=== PATIENT | male | born 1935 | race Caucasian/White ===

== ENCOUNTER 2023-11-14 20:11 | Inpatient (IN) | payer OTHER, SELFPAY ==
[2023-11-14] VITALS (9 sets, daily range): BP systolic 158–219; BP diastolic 81–98; BMI 27.5; BMI 26.5
[2023-11-14 17:01] LABS: % Basophils 0.5 % (0-2); % Eosinophils 0.4 % (0-6); % Immature Granulocytes 0.3 % (0-0.5); % Lymphocytes 15.7 % (20.5-51.1); % Monocytes 5.7 % (1.7-9.3); % Neutrophils 77.4 % (42.2-75.2); Absolute Basophils 0.1 10^3/uL (0-0.2); Absolute Eosinophils 0.1 10^3/uL (0-0.7); Absolute Lymphocytes 1.8 10^3/uL (1.2-3.4); Absolute Monocytes 0.7 10^3/uL (0.1-0.6); Absolute Neutrophils 8.9 10^3/uL (1.4-6.5); Hematocrit 38.9 % (39.0-52.0); Hemoglobin 12.4 g/dL (13.0-18.0); Mean Corp Hgb Conc. 31.9 g/dL (33.0-37.0); Mean Corpuscular Hgb 26.2 pg (27.0-31.0); Mean Corpuscular Volume 82.1 fL (80.0-94.0); Mean Platelet Volume 8.6 fL (7.4-10.4); Nucleated Red Blood Cells % 0 % (-); Platelet Count 308 10^3/uL (130-400); Red Blood Cell Count 4.74 10^6/uL (4.70-6.10); Red Cell Dist. Width 16.7 % (11.5-14.5); White Blood Cell Count 11.5 10^3/uL (4.8-10.8)
[2023-11-14 17:15] LABS: ALT (SGPT) 24 U/L (0-50); AST (SGOT) 31 U/L (17-59); Alkaline Phosphatase 122 U/L (38-126); Blood Urea Nitrogen 19 mg/dl (9-20); Calcium 9.2 mg/dl (8.4-10.2); Carbon Dioxide 24 mmol/L (22-30); Chloride 102 mmol/L (98-107); Estimated Creatinine Clearance 49 ml/min; Glucose 100 mg/dl (70-99); Potassium 4.3 mmol/L (3.5-5.1); Sodium 134 mmol/L (135-145); Total Bilirubin 0.7 mg/dl (0.2-1.3); Total Protein 6.8 g/dl (6.3-8.2); eGFR > 60.00
--- NOTE | 2023-11-14 17:15 | ED.GENMED ---
History of Present Illness
General
Chief Complaint: Dizziness
Source: patient
Exam Limitations: none
Time Seen by Provider: 11/14/23 16:55
Nursing documentation reviewed up to this point in time: agreed with
Travel History
Have you had any contact with someone who has COVID-19?: No
Do you have any symptoms of coronavirus? Fever > 100 degrees, chills, cough, shortness of breath, sore throat, loss of taste or smell, muscle aches, or headache?: No
History of Present Illness
History of Present Illness:
Patient to ED wt complaint of chest tightness, weakness, dizziness. States he had diarrhea yesterday. Took pepto and has had no further episodes today. Did not eat or drink yesterday or today. States he woke today extremely weak and dizzy.
Reports chest tightness. Brought to ED via EMS for eval. Denies fever/chills
Past History
Past History
ED Past Medical History: Arrthythmia (afib), COPD, GERD, HTN, Hypercholesterolemia and Other (PD,PNA)
ED Past Surgical History: None
Social History
Tobacco: Former smoker
Alcohol: Former (Alcoholic clean for many years)
Drug: None
Personal:
Living: with family
Employment: Employed
Family History
Family History: Other (Noncontributory)
Review of Systems
Review of Systems
Allergies reviewed?: Yes
All Other Systems: ROS reviewed and negative except as documented in HPI and ROS
Constitutional: Reports fatigue
EENT: Reports no symptoms
Respiratory: Reports no symptoms
Cardiac: Reports chest pain (Chest tightness this AM)
ABD/GI: Reports diarrhea
: Reports no symptoms
Musculoskeletal: Reports no symptoms
Neurological: Reports dizzy and weakness
Psychiatric: Reports no symptoms
Phy Exam
General Physical Exam
General Presentation: well appearing and no apparent distress
General age: appears stated age
General Skin: warm and dry
General Habitus: normal
Cardiovascular Exam
Cardiovascular Exam: regular rate/rhythm and no edema
Pulmonary Exam
Pulmonary Exam: lungs clear, no respiratory distress and chest non tender
Gastrointestinal Exam
Gastrointestinal Exam: normal bowel sounds, non tender and soft
Neurological Exam
Neurological Exam: alert, oriented x3, CN II-XII intact and no motor deficits
Musculoskeletal Exam
Musculoskeletal Exam: full ROM and neuro vasc intact
Skin Exam
Skin Exam: normal color, warm/dry and no rash
Psychiatric Exam
Psychiatric Exam: normal mood/affect
Course
Orders/Labs/Results
Orders:
Orders
11/14/23 Dinner
Regular
At Your Request: Full Participation
Does patient need a safe tray?: No
11/14/23 16:44
Electrocardiogram (*1) Urgent
Reason for Study: Shortness of Breath
EKG- Treatment ONCE
11/14/23 16:52
Complete Blood Count/With Diff Urgent
Comprehensive Metabolic Panel Urgent
11/14/23 17:14
CR Chest - 2 Views Urgent
Comment:
Reason For Exam: chest tightness
11/14/23 17:16
0.9% Sodium Chloride 1000 ml [Nss] 1,000 ml IV BOLUS
11/14/23 17:30
Troponin I Urgent
11/14/23 18:30
Urinalysis Reflex To Culture Urgent
Date Specimen was Collected: 11/14/23
Time Specimen was Collected: 17:34
11/14/23 19:30
Admit/Transfer Patient As Directed
Co-Sign Provider:
Level of Care: Inpatient admission
Assign to:: Telemetry
Physician / Group: maria alejandra
Diagnosis: chest tightness
Reason for Telemetry: Arrhythmia
Date to Stop Telemetry: 11/17/23
Time to Stop Telemetry: 11:00
Reason for Hospitalization: chest tightness
Expected length of stay greater than two midnights?: Yes
ELOS- Estimated Length of Stay in days: 2
I certify the patient meets the requirements for IP care: Yes
Code Status As Directed
Resuscitation Status: Full Code
11/14/23 21:00
Albuterol [ProAIR HFA INHALER] 2 puff INH R Q4 PRN
FLUTICASONE PROPIONATE 220 mcg [Flovent 220Mcg] 2 puff INH R BID
Heparin 5,000 units SC Q12
Ipratropium Nebs [Atrovent Nebules] 0.5 mg INH R TID
Olodaterol HCl [Striverdi Respimat] 2 puff INH R BID
11/14/23 21:00
Activity As Directed
Activity Level: As Tolerated
Vital Signs As Directed
Frequency: Per unit guidelines
DX Deep Vein Thrombosis Video Routine
11/14/23 21:42
Troponin I Q6H
11/14/23 22:00
Gabapentin [Neurontin] 900 mg PO HS
Lisinopril [Zestril] 20 mg PO HS
Melatonin 5 mg PO HS
11/15/23 03:00
Troponin I Q6H
11/15/23 06:00
Complete Blood Count/With Diff IN AM
Comprehensive Metabolic Panel IN AM
11/15/23 08:00
Clopidogrel Bisulfate [Plavix] 75 mg PO DAILY
Cyanocobalamin [Vitamin B-12] 1,000 mcg PO DAILY
Ezetimibe [Zetia] 10 mg PO DAILY
Ferrous Sulfate [Feosol] 325 mg PO DAILY
Pantoprazole [Protonix] 40 mg PO DAILY
coenzyme Q10 200 mg PO DAILY
11/15/23 09:00
Troponin I Q6H
11/17/23 11:00
DC Protocol for Telemetry ONCE
Abnormal Lab Results
11/14/23 11/14/23 11/14/23
16:52 17:30 18:30
WBC 11.5 H 10^3/uL
(4.8-10.8)
Hgb 12.4 L g/dL
(13.0-18.0)
Hct 38.9 L %
(39.0-52.0)
MCH 26.2 L pg
(27.0-31.0)
MCHC 31.9 L g/dL
(33.0-37.0)
RDW 16.7 H %
(11.5-14.5)
Absolute Neuts (auto) 8.9 H 10^3/uL
(1.4-6.5)
Absolute Monos (auto) 0.7 H 10^3/uL
(0.1-0.6)
Neutrophils % 77.4 H %
(42.2-75.2)
Lymphocytes % 15.7 L %
(20.5-51.1)
Sodium 134 L mmol/L
(135-145)
Glucose 100 H mg/dl
(70-99)
Troponin I 0.042 H* ng/ml
Urine Ketones 2+ A
(Negative)
Urine Glucose Trace A
(Negative)
11/14/23 16:52
11/14/23 16:52
Vital Signs
Initial and Last Documented VS:
Initial Vital Signs
Temp
97.6 F
11/14/23 16:41
Last Documented Vital Signs
Temp Pulse Resp BP Pulse Ox
97.6 F 76 13 201/95 97
11/14/23 16:41 11/14/23 21:55 11/14/23 20:30 11/14/23 21:55 11/14/23 20:30
*Radiology
Radiology exam reviewed: radiology read reviewed
*Pulse Oximetry
Patient hypoxic: no
*Critical Care Note
Total Time (30-74mins, 75-104mins- exclusive of procedures): Not Applicable
Update Note
Update Note:
Patient to ED wtih complaint of extreme weakness, dizziness. Symptoms started this AM. Reports chest tightness this AM, no pain. Labs reviewed, case discussed with dr. blanco. troponin elevation noted. Will continue to trend. Recommend
admission to hospitalist service for new sudden onset weakness and dizziness.
ED Attending Note
-
Portions of this chart may have been created with voice recognition software.� Occasional wrong word or��sound alike� substitutions may have occurred due to the inherent limitations of voice recognition software.
Discharge Plan
Departure
Patient Disposition: Admit
Date of Disposition: 11/14/23
Time of Disposition: 19:07
Presentation/result/management discussed w/ accepting MD/DO: Hospitalist
Patient with high blood pressure during this ER visit?: No
Condition: Fair
Covid-19: Not Applicable
Discharge Problem:
Weakness, Dizziness
Interventions
Interventions:
*Risk Screen - Suicide Last Done: 11/14/23 16:48
*General Assessment Last Done: 11/14/23 16:48
*Neglect/Abuse Screening Last Done: 11/14/23 16:48
ED- Fall Risk Assessment Last Done: 11/14/23 20:38
*ED COVID-19 Vaccine History Last Done: 11/14/23 16:48
*Nursing Disposition Last Done: 11/14/23 20:38
ED- Neurological Assessment Last Done: 11/14/23 16:57
ED- Cardiac Assessment Last Done: 11/14/23 16:57
Discharge Date and Time
Discharge Date/Time: 11/14/23 20:39
[2023-11-14] MEDS: NSS 1000 IV (17:32)
[2023-11-14 18:16] LABS: Troponin I 0.042 ng/ml
[2023-11-14 18:50] LABS: Urine Albumin Negative (Neg - Trace); Urine Bilirubin Negative (Negative); Urine Character Clear (Clear); Urine Color Yellow; Urine Glucose Trace (Negative); Urine Ketone 2+ (Negative); Urine Leukocyte Negative (Negative); Urine Nitrite Negative (Negative); Urine Occult Blood Negative (Negative); Urine Urobilinogen Negative (Neg - 1+); Urine pH 6.5 (5.0-9.0)
--- NOTE | 2023-11-14 19:33 | HPS.HSE ---
Family Physician
-
Family Physician: Tarik Rush
Chief Complaint
-
chest pain
History of Present Illness
88-year-old male past medical history of atrial fibrillation status post ablation on Xarelto, coronary artery disease, COPD, hypertension, duodenal ulcer, GERD, hypercholesteremia, Parkinson disease, restless leg syndrome, spinal stenosis,
presenting with chest tightness, weakness and dizziness. Patient had diarrhea all day yesterday after one of his family members had similar symptoms a day prior. Diarrhea had improved today after taking Pepto-Bismol. He did not eat anything
yesterday. This morning he woke up and he was extremely weak and dizzy and had chest tightness across his chest that did not radiate anywhere. He last had symptoms like this 3 years ago when he had atrial fibrillation prior to ablation. Denies
shortness of breath, vomiting or fevers or chills or cough.
Chest pain has since improved since he has been been in the hospital.
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 Valero in [place]. He states that he has a history of coronary artery disease and a prior stress test and a stent was considered but never placed.
He states that he has been under a lot of stress recently taking care of his and his Parkinson symptoms have been worse.
He is a former smoker and no longer drinks alcohol.
No family history of heart disease.
Medical History
Past Medical History
Past Medical History: Reports Other ( atrial fibrillation status post ablation on Xarelto, coronary artery disease, COPD, hypertension, duodenal ulcer, GERD, hypercholesteremia, Parkinson disease, restless leg syndrome, spinal stenosis)
Past Surgical History: Reports None
Social History
Tobacco: Former Smoker
Alcohol: Former
Drug: None
Family History
Family History: Not pertinent
Allergies / Home Medications
Allergies reflects when Allergies were last updated in [facility].
Home Medications with original date entered in [facility]
Allergy/Medication List:
Allergies
Allergy/AdvReac Type Severity Reaction Status Date / Time
No Known Allergies Allergy Verified 12/10/22 11:56
Home Medications
coenzyme Q10 200 mg capsule 200 mg PO DAILY 07/05/16
lisinopril 20 mg tablet 20 mg PO HS 07/05/16
pantoprazole 40 mg tablet,delayed release 40 mg PO DAILY 07/05/16
furosemide 20 mg tablet 20 mg PO DAILY #30 tabs 07/07/16
albuterol sulfate 90 mcg/actuation aerosol inhaler 2 inh inhalation R Q4 PRN sob/wheezing 11/14/23
clopidogrel 75 mg tablet 75 mg PO DAILY 11/14/23
cyanocobalamin (vitamin B-12) 1,000 mcg tablet (Vitamin B-12) 1,000 mcg PO DAILY 11/14/23
ezetimibe 10 mg tablet 10 mg PO DAILY 11/14/23
ferrous sulfate 325 mg (65 mg iron) tablet 325 mg PO DAILY 11/14/23
gabapentin 300 mg capsule 900 mg PO HS 11/14/23
ipratropium bromide 17 mcg/actuation HFA aerosol inhaler (Atrovent HFA) 2 puff inhalation R TID 11/14/23
melatonin 5 mg tablet 5 mg PO HS 11/14/23
mometasone 220 mcg/actuation(30 doses) breath activated powder inhaler (Asmanex Twisthaler) 2 inh inhalation R BID 11/14/23
olodaterol 2.5 mcg/actuation mist for inhalation (Striverdi Respimat) 1 inh inhalation R BID 11/14/23
topiramate 1 tab PO DAILY 11/14/23
Review of Systems
-
History Source: Patient
A 12 point ROS was completed and negative except as noted: Yes
Constitutional: Reports No Symptoms
EENT: Reports No Symptoms
Respiratory: Reports No Symptoms
Cardiac: Reports Chest Pain
Abdomen/GI: Reports No Symptoms
: Reports No Symptoms
Musculoskeletal: Reports No Symptoms
Skin: Reports No Symptoms
Neurological: Reports No Symptoms
Endocrine: Reports No Symptoms
Hematologic/Lymphatic: Reports No Symptoms
Psych: Reports No Symptoms
Physical Exam
Vital Signs
Vital Signs
Temp Pulse Resp BP Pulse Ox
97.6 F 88 19 185/97 96
11/14/23 16:41 11/14/23 19:00 11/14/23 19:00 11/14/23 18:00 11/14/23 19:00
Physical Exam
General: Well Developed, Well Nourished and No Apparent Distress
HEENT: NormoCephalic, Moist mucous membranes and Atraumatic
Respiratory: Clear
Cardiac: S1/S2 and Regular Rhythm; No Murmur or Rub
GI: Soft, Non Tender, Non Distended and Normal Bowel Sounds; No Organomegaly
Rectal: Deferred by Provider
Musculoskeletal: No Clubbing, No Cyanosis and No Edema
Skin: No Rash
Neuro: Nonfocal/grossly intact
Laboratory Results
-
11/14/23 16:52
11/14/23 16:52
Laboratory Results
Total Bilirubin 0.7 mg/dl (0.2-1.3) 11/14/23 16:52
AST 31 U/L (17-59) 11/14/23 16:52
ALT 24 U/L (0-50) 11/14/23 16:52
Alkaline Phosphatase 122 U/L (38-126) 11/14/23 16:52
Troponin I 0.042 ng/ml H* 11/14/23 17:30
Data Reviewed
-
Lab Data: Labs Reviewed by me
Old Records: Reviewed
Impression/Plan
-
IMPRESSION:
PLAN:
# Chest tightness, rule out ACS
# History of coronary artery disease
-EKG shows sinus rhythm with first-degree AV block, left anterior fascicular block,
-Troponin of 0.042, continue to trend
-Continue aspirin and Plavix
-Cardiology consulted
# Dizziness/weakness likely due to volume losses from gastroenteritis/Parkinson's
-IV fluids given
-Hold Lasix
-Gastroenteritis has resolved
Paroxysmal atrial fibrillation status post ablation
Lower extreme edema
-Hold Lasix
COPD
-Continue inhalers
Essential hypertension
-Continue lisinopril, terazosin
Duodenal ulcer/GERD
-Continue Protonix
Hypercholesterolemia
-Continue Zetia
Parkinson's disease
-Continue Sinemet but patient does not remember dosage
Restless leg syndrome
-Continue gabapentin
Spinal stenosis
Gout
-Continue colchicine
Full code
DVT prophylaxis�heparin
Regular diet
[2023-11-14] MEDS: MELATONIN 5 MG PO (21:54)
[2023-11-14] MEDS: NEURONTIN 900 MG PO (21:54)
[2023-11-14] MEDS: HEPARIN 5000 UNITS SC (21:54)
[2023-11-14] MEDS: ZESTRIL 20 MG PO (21:55)
[2023-11-14 22:27] LABS: COVID-19 Antigen Negative (Negative)
[2023-11-14] MEDS: ATROVENT NEBULES INH (23:28)
[2023-11-14] MEDS: STRIVERDI RESPIMAT INH (23:29)
[2023-11-14] MEDS: FLOVENT 220MCG INH (23:29)
[2023-11-15] VITALS (11 sets, daily range): BP systolic 118–176; BP diastolic 69–90; PULSE 71–73; O2SAT 99
--- NOTE | 2023-11-15 00:28 | PTCARENOTE ---
Pt admitted to IVU at approximately 2100. Pt belongings with pt. Pt oriented to unit and room. HR SR 70s-90s. Pt states cough appeared 3-4 days ago accompanied by runny nose, ROSALES, and 'diarrhea with formed stools'. Flu and COVID neg. Pt's BP elevated
190s/90s-200s/90s. [facility] [employer] Marleen Henriquez PRN 5mg hydralazine ordered. Pt denies any chest tightness or SOB at this time. Informed to notify RN if any changes, call faye within reach.
[2023-11-15 03:58] LABS: % Eosinophils 2.5 % (0-6); % Immature Granulocytes 0.3 % (0-0.5); % Monocytes 8.8 % (1.7-9.3); % Neutrophils 54.4 % (42.2-75.2); Absolute Basophils 0.1 10^3/uL (0-0.2); Absolute Eosinophils 0.2 10^3/uL (0-0.7); Absolute Lymphocytes 2.4 10^3/uL (1.2-3.4); Absolute Monocytes 0.6 10^3/uL (0.1-0.6); Absolute Neutrophils 3.9 10^3/uL (1.4-6.5); Hematocrit 36.4 % (39.0-52.0); Hemoglobin 11.7 g/dL (13.0-18.0); Mean Corp Hgb Conc. 32.1 g/dL (33.0-37.0); Mean Corpuscular Hgb 26.2 pg (27.0-31.0); Mean Corpuscular Volume 81.4 fL (80.0-94.0); Mean Platelet Volume 8.8 fL (7.4-10.4); Nucleated Red Blood Cells % 0 % (-); Platelet Count 302 10^3/uL (130-400); Red Blood Cell Count 4.47 10^6/uL (4.70-6.10); Red Cell Dist. Width 16.9 % (11.5-14.5); White Blood Cell Count 7.1 10^3/uL (4.8-10.8)
[2023-11-15 04:27] LABS: ALT (SGPT) 20 U/L (0-50); AST (SGOT) 25 U/L (17-59); Albumin 3.4 g/dl (3.5-5.0); Alkaline Phosphatase 106 U/L (38-126); Blood Urea Nitrogen 20 mg/dl (9-20); Calcium 8.7 mg/dl (8.4-10.2); Carbon Dioxide 24 mmol/L (22-30); Chloride 103 mmol/L (98-107); Estimated Creatinine Clearance 55 ml/min; Glucose 83 mg/dl (70-99); Potassium 3.8 mmol/L (3.5-5.1); Sodium 136 mmol/L (135-145); Total Bilirubin 0.5 mg/dl (0.2-1.3); eGFR > 60.00
[2023-11-15 04:40] LABS: Troponin I 0.089 ng/ml
--- NOTE | 2023-11-15 06:38 | W.PN.HOSP.TC ---
Today's Communication/Plan
-
.
Assessment / Plan
Assessment / Plan
Physical Exam
General: Well Developed, Well Nourished and No Apparent Distress
HEENT: Normocephalic, Moist mucous membranes and Atraumatic
Respiratory: Clear
Cardiac: S1/S2 and Regular Rhythm; No Murmur or Rub
GI: Soft, Non Tender, Non Distended and Normal Bowel Sounds; No Organomegaly
Rectal: no rectal bleeding
Musculoskeletal: No Clubbing, No Cyanosis and No Edema
Skin: No Rash
Neuro: AAOX3, tremor, followed commands.
Psych: calm.
A/P
# Chest tightness, rule out ACS
# History of coronary artery disease
-EKG shows sinus rhythm with first-degree AV block, left anterior fascicular block,
-Troponin of 0.042, trend between 0.04-0.08 probably consistent with ischemic myocardial injury/? Type II
No chest pain, breathing is better
-Continue aspirin and Plavix
f/w echo . 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 Might need ischemic workup
- Appreciate cardiology input
# Dizziness/weakness likely due to volume losses from gastroenteritis/Parkinson's
-IV fluids given
-Held Lasix
-Gastroenteritis has resolved
he denies diarrhea or abd pain
# Hyponatremia, mild, resolved.
# Leukocytosis, reactive. Afebrile
#Paroxysmal atrial fibrillation status post ablation
#Lower extreme edema
-Hold Lasix
#COPD
-Continue inhalers
#Essential hypertension
-Continue lisinopril, terazosin
#Duodenal ulcer/GERD
-Continue Protonix
#Hypercholesterolemia
-Continue Zetia
#Parkinson's disease
-He does not seem to be on Sinemet. Will verify with pharmacy. He follows with Dr. Delcid. Given gabapentin for tremors
Consult PT/OT
Restless leg syndrome
-Continue gabapentin
Spinal stenosis
Gout
-Continue colchicine
Full code
DVT prophylaxis�heparin
Regular diet
�Total time spent to see the patient, examine the patient on the floor, review data and lab results, discuss treatment plan with the patient, nursing staff around 55 minutes
Anticipated Discharge: 24 - 48 hours
Subjective/Interval History
-
Date of Service: November 15, 2023
No chest pain
Breathing is better this morning
Objective Data
-
Labs:
Laboratory Results
11/15/23
03:40
WBC 7.1
Hgb 11.7 L
Hct 36.4 L
Plt Count 302
Sodium 136
Potassium 3.8
Chloride 103
Carbon Dioxide 24
BUN 20
Creatinine 0.9
Glucose 83
Calcium 8.7
Total Bilirubin 0.5
AST 25
ALT 20
Alkaline Phosphatase 106
Vital Signs:
Vital Signs
Temp Pulse Resp BP Pulse Ox
97.8 F 71 18 140/84 95
11/15/23 03:33 11/15/23 03:33 11/15/23 03:33 11/15/23 03:33 11/15/23 03:33
I&O
11/13/23 11/14/23 11/15/23
06:59 06:59 06:59
Intake Total 940 / 940
Output Total 850 / 850
Balance 90 / 90
[2023-11-15] MEDS: ATROVENT NEBULES 0.5 MG INH ×3 (07:32→20:05)
[2023-11-15] MEDS: FLOVENT 220MCG 2 PUFF INH ×2 (07:33→20:30)
[2023-11-15] MEDS: STRIVERDI RESPIMAT 2 PUFF INH ×2 (07:33→20:30)
[2023-11-15] MEDS: HEPARIN 5000 UNITS SC ×2 (08:36→19:36)
[2023-11-15] MEDS: VITAMIN B-12 1000 MCG PO (08:37)
[2023-11-15] MEDS: FEOSOL 325 MG PO (08:37)
[2023-11-15] MEDS: ZETIA 10 MG PO (08:37)
[2023-11-15] MEDS: PLAVIX 75 MG PO (08:37)
[2023-11-15] MEDS: PROTONIX 40 MG PO (08:37)
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
--- NOTE | 2023-11-15 11:04 | PTCARENOTE ---
Addendum entered by Dennise Phillips RN 11/15/23 12:28:
Pt still only c/o 1 out of 10 discomfort. Pt states that it still feels like a band around his lower chest. Will monitor.
Original Note:
Pt ambulated to bathroom w/ 1 assist. Pt then felt weak and dizzy. Pt assisted to recliner. Pt felt nauseaus. VSS. Pt stated that his left, lower chest discomfort was rated 3 out of 10. He also stated that it felt like a belt around his lower
chest. Pt's symptoms resolved almost immediately. PA aware. Nasal cannula O2 for comfort. Will monitor.
[2023-11-15 11:06] LABS: NT-proBNP 1830 pg/ml
[2023-11-15 11:34] LABS: HDL Cholesterol 53 mg/dl; LDL Cholesterol, Calculated 107 mg/dl; Total Cholesterol 178 mg/dl (50-199); Triglyceride 94 mg/dl (10-149); Very Low Density Lipoprotein 18 mg/dl (0-30)
[2023-11-15] MEDS: NORVASC 5 MG PO (12:07)
[2023-11-15] MEDS: LOW STRENGTH ASPIRIN 81 MG PO (12:07)
--- NOTE | 2023-11-15 13:46 | CM ---
spoke to pt and in room, he lives with his , son and daughter . he is prev indep, lives in a 2 story home with a ramp to enter. he has a walker he uses. he denies any dc planning needs. he gets a visit from the CLEARING TUB WORKER and PT twice a month and
[facility]. plan is for dc t o home when medically stable.
[2023-11-15] MEDS: ZESTRIL 20 MG PO (23:00)
[2023-11-15] MEDS: MELATONIN 5 MG PO (23:00)
[2023-11-15] MEDS: NEURONTIN 900 MG PO (23:00)
--- NOTE | 2023-11-15 23:35 | PTCARENOTE ---
Pt received start of shift. PT OOB in chair. Pt states tight band he had felt earlier is gone. Pt still reports feeling of lightheadedness that has been occurring for a few days now, states it has improved slightly. Pt denies any CP or worsening
SOB. Informed pt to notify RN if any changes, call faye within reach.
Spoke with pt's daughter on phone, pt's Topiramate 25mg tablet PO TID confirmed.
[2023-11-16] VITALS (8 sets, daily range): BP systolic 118–133; BP diastolic 57–93; PULSE 79–99; O2SAT 98
--- NOTE | 2023-11-16 06:39 | W.PN.HOSP.TC ---
Addendum entered and electronically signed by Leonora Pathak MD 11/16/23 13:19:
Addendum
Ambulatory pulse ox did not qualify for oxygen. Patient did not have hypoxia. Patient was insisting on going home to help his who has dementia. Discussed with forensic specialist, okay to go home with aspirin and Plavix and low-dose amlodipine.
Daughter was updated over the phone
Total discharge time spent to see the patient, examine the patient on the floor, review data and lab results, discuss discharge plan with the patient, nursing staff around 65 minutes
Original Note:
Today's Communication/Plan
-
.
Assessment / Plan
Assessment / Plan
Physical Exam
General: Well Developed, Well Nourished and No Apparent Distress
HEENT: Normocephalic, Moist mucous membranes and Atraumatic
Respiratory: Clear
Cardiac: S1/S2 and Regular Rhythm; No Murmur or Rub
GI: Soft, Non Tender, Non Distended and Normal Bowel Sounds; No Organomegaly
Rectal: no rectal bleeding
Musculoskeletal: No Clubbing, No Cyanosis and No Edema
Skin: No Rash
Neuro: AAOX3, less tremor, followed commands.
Psych: calm.
A/P
# Chest tightness, not ACS
# History of coronary artery disease
-EKG shows sinus rhythm with first-degree AV block, left anterior fascicular block,
-Troponin of 0.042, trend between 0.04-0.08 probably consistent with ischemic myocardial injury/ Type II
No chest pain, breathing is better
-Continue aspirin and Plavix
Echo normal LVEF 55% with no wall motion abnormalities.
- Appreciate cardiology input
# Dizziness/weakness likely due to volume losses from gastroenteritis/Parkinson's
-IV fluids given
-Held Lasix
-Gastroenteritis has resolved
he denies diarrhea or abd pain
# Hyponatremia, mild, resolved.
# Leukocytosis, reactive. Afebrile
#Paroxysmal atrial fibrillation status post ablation
#Lower extreme edema
-Hold Lasix
#COPD
-Continue inhalers
#Essential hypertension
-Continue lisinopril, terazosin
He was started on amlodipine, will get orthostatic vitals
#Duodenal ulcer/GERD
-Continue Protonix
#Hypercholesterolemia
-Continue Zetia
#Parkinson's disease
-He does not seem to be on Sinemet. He is on topiramate TID with gabapentin.
Consulted PT/OT
Restless leg syndrome
-Continue gabapentin
Spinal stenosis
Gout
-Continue colchicine
Full code
DVT prophylaxis�heparin
Regular diet
left VM to daughter
�Total time spent to see the patient, examine the patient on the floor, review data and lab results, discuss treatment plan with the patient, nursing staff around 57 minutes
Anticipated Discharge: Within 24 hours
Subjective/Interval History
-
Date of Service: November 16, 2023
He denies chest pain or sob
slept well
Objective Data
-
Vital Signs:
Vital Signs
Temp Pulse Resp BP Pulse Ox
97.8 F 74 18 154/75 96
11/16/23 05:07 11/15/23 23:00 11/16/23 05:07 11/15/23 23:00 11/16/23 05:07
I&O
11/14/23 11/15/23 11/16/23
06:59 06:59 06:59
Intake Total 940 / 940 700 / 700
Output Total 850 / 850 250 / 250
Balance 90 / 90 450 / 450
[2023-11-16] MEDS: FLOVENT 220MCG 2 PUFF INH (07:41)
[2023-11-16] MEDS: ATROVENT NEBULES 0.5 MG INH ×2 (07:41→13:54)
[2023-11-16] MEDS: STRIVERDI RESPIMAT 2 PUFF INH (07:41)
[2023-11-16] MEDS: ZETIA 10 MG PO (08:18)
[2023-11-16] MEDS: NORVASC 5 MG PO (08:19)
[2023-11-16] MEDS: PLAVIX 75 MG PO (08:19)
[2023-11-16] MEDS: LOW STRENGTH ASPIRIN 81 MG PO (08:19)
[2023-11-16] MEDS: VITAMIN B-12 1000 MCG PO (08:19)
[2023-11-16] MEDS: HEPARIN 5000 UNITS SC (08:19)
[2023-11-16] MEDS: PROTONIX 40 MG PO (08:19)
[2023-11-16] MEDS: FEOSOL 325 MG PO (08:19)
--- NOTE | 2023-11-16 10:04 | W.PN.CARDCBS ---
Addendum entered and electronically signed by Mahendra Castillo MD 11/16/23 12:51:
I saw and examined the patient.
The BORING MACHINE OPERATOR HELPER or PA's note was reviewed and I agree with the note.
Comment: General: Well developed, well nourished in NAD.
Neck: Supple, no JVD, HJR, carotids +2 B/L, no bruits bilaterally.
Heart: Non displaced PMI, RRR, no murmurs, No S3, S4, no rubs.
Lungs: Clear to auscultation bilaterally, no wheeze, rhonchi, rubs bilaterally,
normal expiratory phase.
Extremities: No clubbing, cyanosis or edema bilaterally.
Neuro: Severe resting tremor
He denies chest pain. Will continue to treat medically for likely significant CAD as he is a poor candidate for aggressive intervention
Will assess with ambulation to see whether he has desaturation
Likely has significant COPD
He insist on going home to take care of his who has dementia
Will arrange follow-up
Discussed with nurse
Original Note:
Today's Communication / Plan
-
continue asa, plavix, norvasc, lisinopril, zetia
resume po lasix 20mg today
amb pulse ox
OP pulm follow up
OP cardiac follow up to be arranged
Impression / Plan
-
Primary Guard Rail Installer: Dr. Valero
Assessment:
Presentation with weakness, diarrhea, chest tightness
Concern for gastroenteritis
Elevated troponin, felt to be type 2 MT in setting of above
History of atrial flutter s/p RFA 2015
CAD with PTCA to PDA, no stent 2015
History of recovered CM
History of systolic CHF, felt to be tachy mediated
Emphysema/COPD
Former smoker
Essential tremor
Recurrent falls
PACs/PVCs
HTN
HLD
OA
Spinal stenosis
Chronic anemia
History of small bowel ulcerations 02/2018
History of statin intolerance/persistent CP elevation
History of alcoholism, quit 1980
RLS
Gout
ECHO 05/28/2019: EF 53.6%, mild LVH, moderately enlarged RV, moderately dilated RA, trivial pericardial effusion, mild aortic sclerosis without stenosis, RVSP 26.7 mmHg
Lexiscan nuclear stress test 04/18/2018 at [facility]: Presence of previous infarction involving anterior apical myocardial wall with small area of additional infarction involving inferior myocardial wall however this may be secondary to diaphragmatic
attenuation. no evidence of ischemia present, EF 56%
ECHO 11/15/2023: EF 55%, no regional wall motion abnormalities noted, mild TR, PAP 35 mmHg
Plan:
-Patient presents with weakness, dizziness in setting of recent diarrhea with concern for gastroenteritis. In setting of this also with symptoms of chest tightness resulting in cardiology consultation
-trop peaked at 0.089. CXR does note severe atherosclerotic plaque in coronary arteries and thoracic aorta
-will attempt to manage medically given comorbidities. he has severe essential tremor and would be very difficult for patient to lie flat and still on table for cath. Not a candidate for beta-shakira given significant COPD/emphysema. norvasc 5mg
daily added. continue OP lisinopril
-continue plavix. asa added this admission
-no CP overnight
-Echo with preserved EF, results as above
-ortho VS pending. BP stable
-in SR on review of tele
-remains with conversational dyspnea. has severe emphysema by CXR. advised to follow up with pulmonology as OP. check ambulatory pulse ox
-LDL 107. continue OP zetia. history of persistent CPK elevation on statins in past
-Op lasix has been on hold due to gastroenteritis on presentation requiring IVF. proBNP 1800. would consider resuming OP lasix today
-PT/OT following.
-patient would like to follow with Dr. Valero upon DC. will arrange
-d/w nursing
Progress Note - Guard Rail Installer
Subjective
Date of Service: November 16, 2023
no CP overnight. remains with conversational dyspnea.
Objective
Labs:
11/15/23 03:40
11/15/23 03:40
Labs
Hgb 11.7 g/dL (13.0-18.0) L 11/15/23 03:40
Hct 36.4 % (39.0-52.0) L 11/15/23 03:40
Plt Count 302 10^3/uL (130-400) 11/15/23 03:40
Sodium 136 mmol/L (135-145) 11/15/23 03:40
Potassium 3.8 mmol/L (3.5-5.1) 11/15/23 03:40
BUN 20 mg/dl (9-20) 11/15/23 03:40
Creatinine 0.9 mg/dL (0.7-1.3) 11/15/23 03:40
Glucose 83 mg/dl (70-99) 11/15/23 03:40
Troponins
11/14/23 11/14/23 11/15/23
17:30 21:42 03:40
Troponin I 0.042 H* 0.060 H* D 0.089 H* D
11/15/23
09:01
Troponin I 0.070 H*
Vital Signs and I&O:
Vital Signs
Temp Pulse Resp BP Pulse Ox
97.8 F 81 16 128/73 95
11/16/23 07:23 11/16/23 08:45 11/16/23 07:46 11/16/23 08:19 11/16/23 08:29
Vital Signs
Temp Pulse Resp BP Pulse Ox
97.8 F 81 16 128/73 95
11/16/23 07:23 11/16/23 08:45 11/16/23 07:46 11/16/23 08:19 11/16/23 08:29
Intake & Output
03/1811/15/23 11/16/23 11/17/23
07:59 07:59 07:59 07:59
Intake Total 940 / 940 700 / 700
Output Total 850 / 850 250 / 250
Balance 90 / 90 450 / 450
Physical Exam
Physical Exam
GEN: No distress, awake, alert, oriented x3. significant tremor
HEENT: supple, anicteric, mmm, eomi
LUNGS: mild wheezing B/L
CV: Reg, S1/S2, no murmur
ABD: soft, BS+, NT/ND
EXT: No cyanosis, clubbing, edema
NEURO: Gross non-focal
SKIN: Warm, pink, dry. No rash
--- NOTE | 2023-11-16 10:14 | PTCARENOTE ---
Rec'd pt this shift awake and alert. Pt denies CP, denies sob. Tremors noted. AM meds given. Orthostatic VS obtained and patient ambulated to chair with rolling walker. See worklist for VS/I and O and assessments.
[2023-11-16] MEDS: TOPAMAX 25 MG PO (10:34)
--- NOTE | 2023-11-16 11:58 | CM ---
Addendum entered by PILAR Del Angel 11/16/23 13:19:
[facility] able to accept.
Plan: HOME w/ [facility]
Original Note:
CM following for DC planning needs.
Met w/ patient at bedside. He reports that he is feeling well and is hopeful for DC today.
We reviewed PT recommendation for home health. He is agreeable to this and would prefer referral to [facility]. Will submit referral, await response.
Goal is for home w/ [facility], if accepted.
--- NOTE | 2023-11-16 13:11 | W.DCSUMMARY ---
Discharge Summary
Discharge Data
Date of Admission: 11/14/23
Date of Discharge: 11/16/23
-
Pending Results: No
Hospital Course
88 years old male presented with weakness, dizziness in the setting of recent diarrhea with concern for gastroenteritis. Patient also reported symptoms of chest tightness. He had positive troponin. His troponin peaked at 0.089. Chest
radiography noted severe atherosclerotic plaque in coronary arteries and thoracic aorta. His electrocardiogram did not show acute ST elevation. Patient was evaluated by insurance marketing specialist. He was diagnosed with type II myocardial infarction. Patient
was deemed to be not a good candidate for aggressive therapy and the choice was to do medical therapy. He was started on dual antiplatelet therapy with aspirin and Plavix. Patient did not have recurrent chest pain. He was able to tolerate diet
with no diarrhea or abdominal pain. His echocardiogram showed preserved ejection fraction with biventricular ejection fraction of 55%, no regional wall motion abnormalities, mild tricuspid regurgitation with pulmonary artery pressure of 35 mmHg.
Patient was started on low-dose amlodipine. Beta-blockers were avoided due to underlying history of chronic obstructive pulmonary disease. Lasix was resumed at 20 mg daily. Ambulatory oxygen remained normal and did not qualify for home oxygen
therapy. Patient was noted to have severe resting tremor. Upon discussion with the patient and family, patient sometimes remained able to control his tremors. Possible psychogenic in origin. Patient was seen by neurologist in the past with no
definitive diagnosis of Parkinson disease. Patient remained hemodynamically stable. Renal function remained normal with creatinine 0.9 upon discharge. Patient was discharged home in a stable condition.
Discharge Plan
-
Patient Disposition: Home with Home Care
Discharge Diagnosis/Procedures: Type II myocardial injury. You were seen by insurance marketing specialist, you were started on aspirin with Plavix. Resume Lasix 20 mg daily. You were started on new blood pressure medicine called amlodipine which is a calcium
channel shakira. Please follow with your primary insurance marketing specialist and primary care doctor for further management.
Diet: Low Sodium
Activity Restrictions/Additional Instructions:
You have an appointment scheduled with Dr. Valero at his new office 11/29/23 @10:15AM. Address is [address] [place] [address]. Office number [phone].
Referrals:
[facility] [Outside]
Donaldo Valero DO [Non-Admitting Privileges] - in one to two weeks
Tarik Rush DO [Family Provider] - in one to two weeks
Prescriptions:
New
amlodipine 5 mg Tablet
5 mg PO DAILY Qty: 30 0RF
aspirin [Children's Aspirin] 81 mg Tablet,Chewable
81 mg PO DAILY Qty: 30 0RF
Continued
lisinopril 20 MG tablet
20 mg PO HS
Patient Comments:
Patient states there have been no changes in his medications but there were some antibiotics from the past few years. He reviewed the list and confirms everything. 07/05/21
pantoprazole 40 MG tablet,delayed release (DR/EC)
40 mg PO DAILY
Patient Comments:
Patient states there have been no changes in his medications but there were some antibiotics from the past few years. He reviewed the list and confirms everything. 07/05/21
coenzyme Q10 200 MG capsule
200 mg PO DAILY
Patient Comments:
Patient states there have been no changes in his medications but there were some antibiotics from the past few years. He reviewed the list and confirms everything. 07/05/21
clopidogrel 75 mg tablet
75 mg PO DAILY
gabapentin 300 mg Capsule
900 mg PO HS
albuterol sulfate 90 mcg/actuation Hfa Aerosol Inhaler
2 inh INHALATION R Q4 PRN (Reason: sob/wheezing)
ezetimibe 10 mg Tablet
10 mg PO DAILY
Atrovent HFA 17 mcg/actuation Hfa Aerosol Inhaler
2 puff INHALATION R TID
Asmanex Twisthaler 220 mcg/ actuation (30) Aerosol Powdr Breath Activated
2 inh INHALATION R BID
cyanocobalamin (vitamin B-12) [Vitamin B-12] 1,000 mcg Tablet
1,000 mcg PO DAILY
ferrous sulfate 325 mg (65 mg iron) Tablet
325 mg PO DAILY
melatonin 5 mg Tablet
5 mg PO HS
Striverdi Respimat 2.5 mcg/actuation Mist
1 inh INHALATION R BID
furosemide 20 MG tablet
20 mg PO DAILY
Patient Comments:
Patient states there have been no changes in his medications but there were some antibiotics from the past few years. He reviewed the list and confirms everything. 07/05/21
topiramate 25 mg Tablet
25 mg TID
Discharge Orders:
Discharge Patient (As Directed); Ordered 11/16/23
Ordered By: Leonora Pathak
Care Plan Goals
Care Plan Goals:
Problem: Readiness for enhanced knowledge related to diagnosis and treatment plan
Goal: Understand your diagnosis and treatment plan needs, including medications if applicable.
Instructions: Know your diagnosis, underlying causes and treatment plan options, including medications if applicable. Consult with your health care team to learn about your diagnosis and treatment plan, including medications if applicable.
== END 2023-11-16 15:15 | disposition home health service (06) | DRG 281 ==
LOC: IVU 20:11
PROVIDERS: Nurse Practitioner; Registered Nurse; ADMITTING PHYSICIAN Hospitalist; ATTENDING PHYSICIAN Internal Medicine; CONSULT PHYSICIAN Internal Medicine Cardiovascular Disease; EMERGENCY PHYSICIAN Emergency Medicine; FAMILY PHYSICIAN Internal Medicine
DX: I25.10 Atherosclerotic heart disease of native coronary artery without angina pectoris (principal); I21.A1 Myocardial infarction type 2; E87.1 Hypo-osmolality and hyponatremia; I50.22 Chronic systolic (congestive) heart failure; I42.9 Cardiomyopathy, unspecified; R42 Dizziness and giddiness; E78.00 Pure hypercholesterolemia, unspecified; I11.0 Hypertensive heart disease with heart failure; J43.9 Emphysema, unspecified; M19.90 Unspecified osteoarthritis, unspecified site; F10.21 Alcohol dependence, in remission; D64.9 Anemia, unspecified; K21.9 Gastro-esophageal reflux disease without esophagitis; I48.0 Paroxysmal atrial fibrillation; G20.A1 Parkinson's disease without dyskinesia, without mention of fluctuations; G25.81 Restless legs syndrome; I44.0 Atrioventricular block, first degree; I44.4 Left anterior fascicular block; D72.829 Elevated white blood cell count, unspecified; M48.00 Spinal stenosis, site unspecified; K52.9 Noninfective gastroenteritis and colitis, unspecified; M10.9 Gout, unspecified; R29.6 Repeated falls; Z79.02 Long term (current) use of antithrombotics/antiplatelets; Z87.891 Personal history of nicotine dependence; Z98.61 Coronary angioplasty status; Z79.51 Long term (current) use of inhaled steroids; Z87.11 Personal history of peptic ulcer disease
CPT/HCPCS: 71046; 80053; 80061; 81003; 83880; 84484; 85025; 87070; 87502; 87811; 93005; 93306; 94640; 96360; 97163; 97167; 97530; 97535; 99285

== ENCOUNTER 2023-12-12 19:50 | Emergency (ER) | payer OTHER, SELFPAY ==
[2023-12-12 19:52] VITALS: BP 111/78
[2023-12-12 20:06] LABS: % Basophils 0.7 % (0-2); % Eosinophils 2.5 % (0-6); % Immature Granulocytes 0.3 % (0-0.5); % Lymphocytes 25.7 % (20.5-51.1); % Monocytes 8.3 % (1.7-9.3); % Neutrophils 62.5 % (42.2-75.2); Absolute Basophils 0.1 10^3/uL (0-0.2); Absolute Eosinophils 0.2 10^3/uL (0-0.7); Absolute Monocytes 0.6 10^3/uL (0.1-0.6); Absolute Neutrophils 4.8 10^3/uL (1.4-6.5); Hematocrit 33.6 % (39.0-52.0); Hemoglobin 10.8 g/dL (13.0-18.0); Mean Corp Hgb Conc. 32.1 g/dL (33.0-37.0); Mean Corpuscular Hgb 26.3 pg (27.0-31.0); Mean Platelet Volume 8.7 fL (7.4-10.4); Nucleated Red Blood Cells % 0 % (-); Platelet Count 288 10^3/uL (130-400); Red Cell Dist. Width 17.7 % (11.5-14.5); White Blood Cell Count 7.6 10^3/uL (4.8-10.8)
[2023-12-12 20:30] LABS: Troponin I 0.031 ng/ml
[2023-12-12 20:32] LABS: ALT (SGPT) 22 U/L (0-50); AST (SGOT) 27 U/L (17-59); Albumin 3.6 g/dl (3.5-5.0); Alkaline Phosphatase 87 U/L (38-126); Blood Urea Nitrogen 25 mg/dl (9-20); Calcium 9.4 mg/dl (8.4-10.2); Carbon Dioxide 27 mmol/L (22-30); Chloride 102 mmol/L (98-107); Glucose 113 mg/dl (70-99); Potassium 4.5 mmol/L (3.5-5.1); Sodium 136 mmol/L (135-145); Total Bilirubin 0.4 mg/dl (0.2-1.3); Total Protein 6.1 g/dl (6.3-8.2); eGFR > 60.00
[2023-12-13 00:58] VITALS: BP 158/82
--- NOTE | 2023-12-13 01:00 | ED.GENMED ---
History of Present Illness
General
Chief Complaint: Blood Pressure Problem
Source: patient
Exam Limitations: none
Time Seen by Provider: 12/13/23 00:43
Travel History
Have you had any contact with someone who has COVID-19?: No
Do you have any symptoms of coronavirus? Fever > 100 degrees, chills, cough, shortness of breath, sore throat, loss of taste or smell, muscle aches, or headache?: No
History of Present Illness
History of Present Illness:
See MDM
Past History
Past History
ED Past Medical History: Arrthythmia (afib), COPD, GERD, HTN, Hypercholesterolemia and Other (PD,PNA)
ED Past Surgical History: None
Social History
Tobacco: Former smoker
Alcohol: Former (Alcoholic clean for many years)
Drug: None
Personal:
Living: with family
Employment: Employed
Family History
Family History: Other (Noncontributory)
Phy Exam
Physical Exam
Physical Exam:
See MDM
Course
Orders/Labs/Results
Orders:
Orders
12/12/23 19:55
Electrocardiogram (*1) Urgent
Reason for Study: Vertigo / Dizzy
EKG- Treatment ONCE
12/12/23 20:01
CMP [Comprehensive Metabolic Panel] Urgent
Complete Blood Count/With Diff Urgent
Troponin I Urgent
Abnormal Lab Results
12/12/23
20:01
RBC 4.10 L 10^6/uL
(4.70-6.10)
Hgb 10.8 L g/dL
(13.0-18.0)
Hct 33.6 L %
(39.0-52.0)
MCH 26.3 L pg
(27.0-31.0)
MCHC 32.1 L g/dL
(33.0-37.0)
RDW 17.7 H %
(11.5-14.5)
BUN 25 H mg/dl
(9-20)
Glucose 113 H mg/dl
(70-99)
Total Protein 6.1 L g/dl
(6.3-8.2)
12/12/23 20:01
12/12/23 20:01
Vital Signs
Initial and Last Documented VS:
Initial Vital Signs
Temp Pulse Resp BP Pulse Ox
98.1 F 74 22 111/78 97
12/12/23 19:52 12/12/23 19:52 12/12/23 19:52 12/12/23 19:52 12/12/23 19:52
Last Documented Vital Signs
Temp Pulse Resp BP Pulse Ox
98.1 F 74 22 158/82 97
12/12/23 19:52 12/12/23 19:52 12/12/23 19:52 12/13/23 00:58 12/12/23 19:52
MDM/Problems Addressed
Differential Diagnosis Includes:
HPI and MDM Narrative:
88-year-old male presenting for evaluation of low blood pressure. Patient has been feeling weak and dizzy throughout the day today. He was checking his blood pressure and had some readings of 70s and 80s. He talk to his visiting nurses who
instructed him to go to the emergency department. On arrival, patient states he is feeling better. His blood pressure is improving. I question whether or not he is drinking enough water and whether or not he had new medications prescribed.
Patient states he had a new blood pressure medication that he has been taking. He cannot remember the name.
On exam, patient does have significant Parkinson's tremor. However, he appears to be in no acute distress. Patient is smiling and making jokes.
I discussed his age and his dizziness and whether or not he feels comfortable going home. I did offer admission. Patient acknowledged my concern but states he wants to go home to care for his . He understands risk of going home and will talk
to his primary care doctor
Physical exam
General: Well appearing and non-toxic
HEENT: protecting airway. Mildly dry mucous membranes
Neck: appears supple
CV: No evidence of cyanosis. Regular rate and rhythm
Resp: No accessory muscle use
Abd: Non-distended
Extremities: No deformities
Neuro: alert. Resting tremor bilateral upper extremities
Psych: Normal affect
Skin: Intact
Problems Addressed including Acute and Chronic Conditions affecting care:
1. Hypertension
Acuity: acute
Prognosis: stable
Details: Likely in the setting of mild dehydration and polypharmacy. Patient will stop the newly added blood pressure medicine talk to primary care doctor
Differential Diagnosis (but not limited to): Polypharmacy, hypotension, dehydration
Testing considered: Urinalysis but he denies symptoms
Drug therapy (if applicable): OTC meds, please see d/c instruction regarding Rx drugs
Amount and/or Complexity of Data Reviewed
Clinical info obtained from: Patient
External data reviewed: N/A
Labs I independently reviewed (but not limited to): Anemia appears to be at baseline
Radiology: N/A
Pulse Ox: not hypoxic
EKG independently reviewed: Sinus rhythm, left axis, no STEMI
Monitor Tech: N/A
Critical Care: N/A
Risk of Complication:
Social Determinants of health: Good social support
Discussed with other providers: N/A
Escalation of Care includes Admit/Obs: After being observed in the Emergency Department, pt stable for discharge.
Occasional wrong word or 'sound a like' substitutions may have occurred due to the inherent limitations of voice recognition software. Read the chart carefully and recognize, using context, where substitutions have occurred.
*Critical Care Note
Total Time (30-74mins, 75-104mins- exclusive of procedures): Not Applicable
ED Attending Note
-
Portions of this chart may have been created with voice recognition software.� Occasional wrong word or��sound alike� substitutions may have occurred due to the inherent limitations of voice recognition software.
Discharge Plan
Departure
Patient Disposition: Home (Routine Discharge)
Date of Disposition: 12/13/23
Time of Disposition: 01:00
Patient with high blood pressure during this ER visit?: No
Discharge Problem:
Hypotension
Prescriptions:
No Action
lisinopril 20 MG tablet
20 mg PO HS
Patient Comments:
Patient states there have been no changes in his medications but there were some antibiotics from the past few years. He reviewed the list and confirms everything. 07/05/21
pantoprazole 40 MG tablet,delayed release (DR/EC)
40 mg PO DAILY
Patient Comments:
Patient states there have been no changes in his medications but there were some antibiotics from the past few years. He reviewed the list and confirms everything. 07/05/21
coenzyme Q10 200 MG capsule
200 mg PO DAILY
Patient Comments:
Patient states there have been no changes in his medications but there were some antibiotics from the past few years. He reviewed the list and confirms everything. 07/05/21
clopidogrel 75 mg tablet
75 mg PO DAILY
gabapentin 300 mg Capsule
900 mg PO HS
albuterol sulfate 90 mcg/actuation Hfa Aerosol Inhaler
2 inh INHALATION R Q4 PRN (Reason: sob/wheezing)
ezetimibe 10 mg Tablet
10 mg PO DAILY
Atrovent HFA 17 mcg/actuation Hfa Aerosol Inhaler
2 puff INHALATION R TID
Asmanex Twisthaler 220 mcg/ actuation (30) Aerosol Powdr Breath Activated
2 inh INHALATION R BID
cyanocobalamin (vitamin B-12) [Vitamin B-12] 1,000 mcg Tablet
1,000 mcg PO DAILY
ferrous sulfate 325 mg (65 mg iron) Tablet
325 mg PO DAILY
melatonin 5 mg Tablet
5 mg PO HS
Striverdi Respimat 2.5 mcg/actuation Mist
1 inh INHALATION R BID
furosemide 20 MG tablet
20 mg PO DAILY
Patient Comments:
Patient states there have been no changes in his medications but there were some antibiotics from the past few years. He reviewed the list and confirms everything. 07/05/21
topiramate 25 mg Tablet
25 mg TID
amlodipine 5 mg Tablet
5 mg PO DAILY Qty: 30 0RF
aspirin [Children's Aspirin] 81 mg Tablet,Chewable
81 mg PO DAILY Qty: 30 0RF
Activity Restrictions/Additional Instructions:
Please return for any worsening symptoms.
You may return at any time if you have further concerns.
Please follow up with your doctor at the first available appointment, preferably this week. As we discussed, please discontinue the recently added blood pressure medicine until told otherwise by your primary care doctor.
Thank you for choosing [facility].
Interventions
Interventions:
*Risk Screen - Suicide Last Done: 12/12/23 19:52
*Neglect/Abuse Screening Last Done: 12/12/23 19:52
Discharge Date and Time
Print Language: SAUDI ARABIAN
== END 2023-12-13 01:32 | disposition home or self-care (01) ==
LOC: EMR 19:50
PROVIDERS: Emergency Medicine; EMERGENCY PHYSICIAN Student in an Organized Health Care Education/Training Program; FAMILY PHYSICIAN Internal Medicine
DX: I95.9 Hypotension, unspecified (principal)
CPT/HCPCS: 99284; 80053; 84484; 85025; 93005

== ENCOUNTER → 2024-04-18 09:07 | Outpatient (REF) | payer OTHER, SELFPAY | LOC: RCS 09:07 | PROVIDERS: ATTENDING PHYSICIAN Internal Medicine Interventional Cardiology; FAMILY PHYSICIAN Internal Medicine | DX: I25.10 Atherosclerotic heart disease of native coronary artery without angina pectoris (principal) | CPT/HCPCS: 93306 ==